=== PATIENT | male | born 1990 | race Caucasian/White ===

== ENCOUNTER 2022-03-23 17:26 | Emergency (ER) | payer SELFPAY ==
[2022-03-23 17:35] VITALS: BP 140/90; PULSE 73; RESP 18; TEMP 36.6; O2SAT 100
--- NOTE | 2022-03-23 18:33 | ED.EAR ---
HPI - Ear Problem General Chief complaint: Ear Stated complaint: Ear Pain Time Seen by Provider: 03/23/22 18:20 Source: patient, RN notes reviewed and old records reviewed Mode of arrival: ambulatory Limitations: no limitations History of Present Illness HPI Narrative: 31-year-old male who presents to [facility] with complaints of left ear pain with drainage and decreased hearing for about 1 week duration. He states he has been taking ibuprofen for his discomfort with minimal decrease. Patient does state history of frequent ear infections over the years has never had ear tubes.Patient states that pain to his left ear is 10/10. MD Complaint: ear pain Location: left ear Duration: constant Severity: severe Discharge from ear: Reports yes - purulent Associated symptoms ear: decreased hearing Related Data Allergies Allergy/AdvReac Type Severity Reaction Status Date / Time No Known Allergies Allergy Verified 03/23/22 17:27 Review of Systems Review of Systems: CONSTITUTIONAL: Denies fever, chills, or sweats. EYES: Denies visual changes, redness, or discharge. ENT: Denies rhinorrhea, congestion, sore throat, positive left ear pain CARDIOVASCULAR: Denies chest pain, palpitations, or edema. RESPIRATORY: Denies cough or dyspnea. GASTROINTESTINAL: Denies abdominal pain, nausea, vomiting, or diarrhea. GENITOURINARY: Denies dysuria or hematuria. SKIN: Denies rash or itching. MUSCULOSKELETAL: Denies back pain, joint pain, or myalgia. NEUROLOGIC: Denies headache, numbness, or weakness. PSYCHIATRIC: Denies anxiety or depression. PMFSH Past Medical History Medical History (Updated 03/24/22 @ 21:41 by Chyna Beasley NP) Fracture of right clavicle History of frequent ear infections Strep pharyngitis Social History Social History (Updated 03/24/22 @ 21:39 by Chyna Beasley NP) Smoking status: Current every day smoker Tobacco type: cigarettes Alcohol intake: current Alcohol use details: Social Substance use type: does not use Living arrangements: with family Gender identity (if verbalized by the patient): Male Comments At time of signature, agree with nursing past medical, surgical, social and family history. There is no relevant family history pertinent to the presenting complaint Exam Narrative: GENERAL: Well-appearing, well-nourished, and in some acute distress. HEAD: Normocephalic, atraumatic. EYES: PERRLA and EOMI. ENT: Nares clear, no rhinorrhea or epistaxis. Mucous membranes moist. Left TM red with purulent drainage canal also slightly reddened, right TM normal with good light reflex throat pink with no lesions or exudates NECK: Supple. No lymphadenopathy CHEST: Clear to auscultation. No respiratory distress. SaO2 100% on room air no cough or congestion no tachypnea HEART: Regular rate and rhythm. No murmur heard. Normal peripheral pulses. ABDOMEN: Soft, nontender, nondistended, normal active bowel sounds. EXTREMITIES: Normal range of motion. No edema. SKIN: Warm, dry, no rash. NEURO: No focal deficits. Alert and oriented x3. Course Course Level of Care: Express Care Visit Vital Signs Vital signs: Vital Signs Temperature 36.6 C 03/23/22 17:35 Pulse Rate 73 03/23/22 17:35 Respiratory Rate 18 03/23/22 17:35 Blood Pressure 140/90 03/23/22 17:35 Pulse Oximetry 100 03/23/22 17:35 Oxygen Delivery Room Air 03/23/22 17:35 Temperature 36.6 C 03/23/22 17:35 Pulse Rate 73 03/23/22 17:35 Respiratory Rate 18 03/23/22 17:35 Blood Pressure 140/90 03/23/22 17:35 Pulse Oximetry 100 03/23/22 17:35 Oxygen Delivery Room Air 03/23/22 17:35 Medical Decision Making Differential Diagnosis Differential Diagnosis: otitis media, otitis externa, URI, viral syndrome Medical Records Medical records reviewed: Yes I reviewed the external patient's medical records. Vital Signs Vital Signs: Vital Signs Temperature 36.6 C 03/23/22 17:35 Pulse Rate 73
== END 2022-03-23 18:50 | disposition home or self-care (01) ==
PROVIDERS: Emergency Provider Registered Nurse
DX: H66.92 Otitis media, unspecified, left ear (principal); F17.210 Nicotine dependence, cigarettes, uncomplicated
CPT/HCPCS: 99213; G0463